=== PATIENT | male | born 1975 | race Caucasian/White ===

== ENCOUNTER → 2016-09-09 | Outpatient (CLI) | payer OTHER ==
--- NOTE | 2016-09-09 22:56 | MR ---
MRI CERVICAL SPINE: MRI BRAIN WITH CLINICAL HISTORY: Memory difficulties and cervicalgia per order. Additional symptoms of headaches wit h forgetfulness, body pain, and weakness with pain or weakness in both arms and fingers per patient. TECHNIQUE: Multiplanar, multisequence imaging of the brain, brainstem, and cervical spine are all per formed without and with IV contrast, 15 cc of gadolinium was given intravenously. COMPARISON: MRI brain February 14, 2016. CT brain October 02, 2015.. FINDINGS: BRAIN: FINDINGS: Diffusion weighted images demonstrate no evidence of a recent infarct or other diffusion ab normality. There is no worrisome extra-axial fluid collection. The ventricular system and cisternal spaces are normal in size and appearance. The brain volume is age appropriate. There is redemonstra tion a few scattered T2 hyperintense lesions throughout the white matter bilaterally with approximate ly 6-10 focal lesions felt again present. Largest lesion measures 5 mm left frontal lobe on axial aaliyah ge 21. Elongated subcortical lesion left frontal lobe at this level is redemonstrated anteriorly. Ryan e volume loss at this level is suspected. Suspect focal encephalomalacia. Midline structures demonstrate normal morphology. The craniocervical junction appears within normal limits. Post contrast images demonstrate no abnormal enhancement. The dural venous sinuses appear pa tent. The visualized sinuses are clear and the globes are intact. IMPRESSION: Mild nonspecific white matter changes as detailed above, no significant change from prior study. No new findings are evident. C-SPINE: Sagittal images of the cervical spine show the craniocervical junction to appear within normal limits . The cervical and upper thoracic spinal cord is normal in course, caliber, and signal. Vertebral a lignment is anatomic. The vertebral body and intravertebral disk heights are normal. No large manager enrollment ior disc herniations are seen on sagittal images. The bone marrow signal intensity is within normal l imits. No suspicious spurring is seen. No suspicious postcontrast enhancement is noted. Axial images show the C2-C3, C3-C4, C4-C5 levels all to appear within normal limits. Axial images at C5-C6 level show small left paracentral disc protrusion minimally effacing the anteri or thecal sac on axial image 23, bilateral neural foramina are patent. Axial images at C6-C7 level shows central disc protrusion mildly effacing anterior thecal sac and axi al image 15, bilateral neural foramina are felt patent. Axial images at C7-T1 level are felt within normal limits. IMPRESSION: Small posterior disc herniations mid to lower cervical spine as detailed above otherwise unremarkable study
== END | disposition home or self-care (01) ==
LOC: RADMRIMAIN 19:47
PROVIDERS: ATTEND Psychiatry & Neurology Pain Medicine
DX: M50.20 Other cervical disc displacement, unspecified cervical region (principal); R90.82 White matter disease, unspecified; R41.3 Other amnesia
CPT/HCPCS: 70553; 72156; A9577

== ENCOUNTER → 2016-09-24 | Outpatient (CLI) | payer OTHER | END | disposition home or self-care (01) | LOC: LABWHC1 08:50 | PROVIDERS: ATTEND Psychiatry & Neurology Neurology | DX: Z53.9 Procedure and treatment not carried out, unspecified reason (principal) | CPT/HCPCS: 36415 ==

== ENCOUNTER → 2017-06-03 | Outpatient (CLI) | payer OTHER ==
--- NOTE | 2017-06-03 12:42 | MR ---
EXAMINATION TYPE: MR brain wo/w con DATE OF EXAM: 06/03/2017 COMPARISON: MRI brain dated 09-09-2016. HISTORY: Mild cognitive impairment, calvin, and numbness. TECHNIQUE: Multiplanar, multisequence images of the brain and brainstem is performed without and with IV contras t, utilizing 7.5 mL intravenous Gadavist . FINDINGS: Diffusion weighted images demonstrate no evidence of a recent infarct or other diffusion ab normality. There is no worrisome extra-axial fluid collection. The ventricular system and cisternal spaces are normal in size and appearance. The brain volume is age appropriate. There are few scatte red foci of T2 hyperintensity seen throughout the white matter bilaterally. Approximately 6-10 scatte red lesions remain present. Largest lesion measures 5 mm left frontal lobe on axial image 22 and is n ot changed. Anterior to this there is focal area of old infarct or encephalomalacia involving left fr ontal lobe redemonstrated. No definitive new lesions are clearly seen. Midline structures demonstrate normal morphology. The craniocervical junction appears within normal limits. Post contrast images demonstrate no abnormal enhancement. The dural venous sinuses appear pa tent. The visualized sinuses are clear and the globes are intact. IMPRESSION: Mild to minimal nonspecific white matter changes redemonstrated. Finding may be reflect bharathi of ischemic change related to product of migraine headaches. Demyelinating disease needs to BE co nsidered in patient of this age. No enhancing lesions are seen. No significant change from prior stud y is noted.
== END | disposition home or self-care (01) ==
LOC: RADMRIMAIN 06:58
PROVIDERS: ATTEND Psychiatry & Neurology Neurology
DX: R90.82 White matter disease, unspecified (principal); Z86.69 Personal history of other diseases of the nervous system and sense organs
CPT/HCPCS: 70553; A9581

== ENCOUNTER 2019-02-16 14:56 | Emergency (ER) | payer MEDICARE, OTHER ==
[2019-02-16] MEDS ORDERED: KETOROLAC 30 MG/ML 1 ML VIAL IM STA (16:27)
--- NOTE | 2019-02-16 16:28 | ED ---
General Adult HPI - General Chief complaint: Recheck/Abnormal Lab/Rx Stated complaint: Pain all over Time Seen by Provider: 02/16/19 15:39 Source: patient, RN notes reviewed Mode of arrival: ambulatory Limitations: no limitations - History of Present Illness Initial comments: 43-year-old male without any significant past medical history presents to the emergency department for chronic pain. Patient states his pain is all over from his neck down to his ankles. States this has been chronic for 7 years. States he used to go to pain management but stopped a year ago because he was maybe feeling a little bit better. States that now he feels worse again. Patient denies drinking any alcohol today but states he does something strength to manage his pain. Patient is requesting admission for advanced testing of his chronic pain. Denies fevers or chills. Denies any weakness of any extremities. Denies any bladder or bowel changes.Patient has no other complaints at this time including shortness of breath, chest pain, abdominal pain, nausea or vomiting, headache, or visual changes. - Related Data Home Medications Medication Instructions Recorded Confirmed Cyclobenzaprine [Flexeril] 10 mg PO DIRECTED PRN 10/20/15 10/29/16 Ibuprofen [Motrin] 800 mg PO DIRECTED PRN 07/23/16 10/29/16 Donepezil [Aricept] 5 mg PO HS 10/28/16 10/29/16 Allergies Allergy/AdvReac Type Severity Reaction Status Date / Time venom-honey bee Allergy Anaphylaxis Verified 02/16/19 15:18 [bee venom (honey bee)] Review of Systems ROS Statement: Those systems with pertinent positive or pertinent negative responses have been documented in the HPI. ROS Other: All systems not noted in ROS Statement are negative. Past Medical History Past Medical History: No Reported History Additional Past Medical History / Comment(s): concusssions. multiple sclerosis in the process of being ruled out History of Any Multi-Drug Resistant Organisms: None Reported Past Surgical History: No Surgical Hx Reported Past Psychological History: Bipolar, Depression Smoking Status: Current every day smoker Past Alcohol Use History: Daily, Heavy Past Drug Use History: Marijuana General Exam Limitations: no limitations General appearance: alert, in no apparent distress Head exam: Present: atraumatic, normocephalic, normal inspection Eye exam: Present: normal appearance, PERRL, EOMI. Absent: scleral icterus, conjunctival injection, periorbital swelling ENT exam: Present: normal exam, mucous membranes moist Neck exam: Present: normal inspection, full ROM. Absent: tenderness, meningismus, lymphadenopathy Respiratory exam: Present: normal lung sounds bilaterally. Absent: respiratory distress, wheezes, rales, rhonchi, stridor Cardiovascular Exam: Present: regular rate, normal rhythm, normal heart sounds. Absent: systolic murmur, diastolic murmur, rubs, gallop, clicks GI/Abdominal exam: Present: soft, normal bowel sounds. Absent: distended, tenderness, guarding, rebound, rigid Extremities exam: Present: other (Moving all extremities and all joints, no evidence of trauma. No bruising.) Neurological exam: Present: alert, oriented X3 Psychiatric exam: Present: normal affect, normal mood Course Vital Signs 02/16/19 15:18 Temperature 98 F Pulse Rate 96 Respiratory 18 Rate Blood Pressure 102/69 O2 Sat by Pulse 97 Oximetry Medical Decision Making - Medical Decision Making 43-year-old male presents for chronic pain. States this has been ongoing for 7 years and is from his neck down to his ankles. Denies any neurological complaints. States he used to follow with pain management for this but stopped going. States he used to be prescribed muscle relaxers, Ativan, [place] and states he would like to be back on this or be admitted for advanced testing. Gait was unremarkable. Patient is ambulatory. Moving all extremities, no evidence of trauma. Denies any falls. Patient was given Toradol. Discussed that at this time I unfortunately will not be able to admit him for this chronic problem. He will need to follow with his neurologist Dr. Downey. Discussed returning if he has any worsening symptoms. Disposition Clinical Impression: Chronic pain Disposition: ADMITTED IP TO THIS HOSP Condition: Fair Instructions (If sedation given, give patient instructions): R.I.C.E. Treatment (ED) Additional Instructions: Please take Motrin and Tylenol for pain. Please follow-up with primary care and pain clinic in one to 2 days. Return to the emergency department if you have any worsening symptoms. Is patient prescribed a controlled substance at d/c from ED?: No Referrals: Ermias Palmer MD [Primary Care Provider] - 1-2 days Time of Disposition: 16:27
[2019-02-16 16:54] VITALS: BP 109/77; PULSE 84; RESP 19; TEMP 98.3
== END 2019-02-16 16:54 | disposition other institution (70) ==
LOC: EC 14:56
DX: G89.29 Other chronic pain (principal); G35 Multiple sclerosis; F17.200 Nicotine dependence, unspecified, uncomplicated; Z79.899 Other long term (current) drug therapy; Z91.030 Bee allergy status
CPT/HCPCS: 99284; 96372; J1885

== ENCOUNTER → 2019-04-18 | Outpatient (CLI) | payer MEDICARE ==
[2019-04-18 19:29] LABS: Total Protein,CSF 89 mg/dL (12-60)
[2019-04-18 20:14] LABS: Appearance,CSF Clear; CSF Tube Number 4; CSF Tube Volume 3; Nucleated Cells, CSF 1 u/L (0-5); Red Blood Cell,CSF 0 u/L (0-10)
== END | disposition home or self-care (01) ==
LOC: LABWHC1 09:59
PROVIDERS: ATTEND Psychiatry & Neurology Pain Medicine
DX: R90.82 White matter disease, unspecified (principal)
CPT/HCPCS: 36415; 82040; 82042; 82784; 83873; 83916; 84157; 87801; 89050

== ENCOUNTER → 2023-03-16 | Outpatient (CLI) | payer MEDICARE ==
--- NOTE | 2023-03-16 11:23 | US ---
EXAMINATION TYPE: US carotid duplex BILAT DATE OF EXAM: 03/16/2023 COMPARISON: NONE CLINICAL INDICATION: Male, 47 years old with history of I63.9 CEREBRAL INFARCTION, UNSPECIFIED; strok e TECHNIQUE: Carotid duplex ultrasound examination. Indirect Doppler criteria was utilized. 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 Criteria for Assigning % of Stenosis / Diameter reduction (Estimation based on the indirect measurements of the internal carotid artery velocities (ICA PSV). 1. Normal (no stenosis)=ICA PSV < 125 cm/s: ratio < 2.0: ICA EDV<40 cm/s. 2. Less than 50% stenosis=ICA PSV < 125 cm/s: ratio < 2.0: ICA EDV<40 cm/s. 3. 50 to 69% stenosis=ICA PSV of 125 to 230 cm/s: ration 2.0 ? 4.0: ICA EDV 40-100 cm/s. 4. Greater than 70% stenosis to near occlusion= ICA PSV > 230 cm/s: ratio > 4.0: ICA EDV > 100 cm/s. 5. Near occlusion= ICA PSV velocities may be low or undetectable: variable ratio and ICA EDV. 6. Total occlusion=unable to detect flow.
== END | disposition home or self-care (01) ==
LOC: RADUSWWP 10:59
PROVIDERS: ATTEND Internal Medicine Geriatric Medicine
DX: I63.9 Cerebral infarction, unspecified (principal)
CPT/HCPCS: 93880